=== PATIENT | male | born 1975 | race Caucasian/White ===

== ENCOUNTER → 2025-04-06 | Day surgery (SDC) | payer BC ==
[~2025-04-06] MED LIST: Sodium Chloride 0.9% 10 ML Syringe FLUSH PRN; Sodium Chloride 0.9% 2.5 ML Syringe FLUSH PRN; propofoL 500 MG/50 ML 50 ML ONE
[2025-04-06] MEDS: Lactated Ringers 1,000 ML IV SCH (10:50)
== END | disposition home or self-care (01) ==
LOC: MW.SDS 10:12
PROVIDERS: ATTEND Surgery
DX: Z12.11 Encounter for screening for malignant neoplasm of colon (principal); D12.5 Benign neoplasm of sigmoid colon; Z79.899 Other long term (current) drug therapy; Z87.891 Personal history of nicotine dependence
CPT/HCPCS: 45385; J2704; J7120; 00811